=== PATIENT | male | born 1965 | race Caucasian/White ===

== ENCOUNTER 2017-04-12 08:56 | Emergency (ER) | payer BC ==
[2017-04-12] MEDS ORDERED: Labetalol 100 MG/20 ML MDV IVPUSH ONE ×2 (09:21→09:48)
[2017-04-12] MEDS ORDERED: Furosemide 40 MG/4 ML VIAL IVPUSH ONE (10:19)
[2017-04-12] MEDS ORDERED: Furosemide 40 MG/4 ML VIAL ONE (10:26)
[2017-04-12 11:11] VITALS: BP 185/124
--- NOTE | 2017-04-12 16:54 | CT ---
DATE OF SERVICE: 04/12/17 CLINICAL DATA: Lightheaded - can't focus well. UNENHANCED BRAIN CT Multislice acquisition through the brain without IV contrast was performed. Comparison is made to a prior exam dated 12/27/2014. No masses or mass effect. No intracranial hemorrhage. No evidence of acute or subacute infarct. No osseous abnormalities. There is minimal mucosal thickening in the ethmoid sinuses consistent with chronic sinusitis. IMPRESSION: No acute intracranial abnormalities. [id number] [facility]
--- NOTE | 2017-04-12 16:57 | CR ---
DATE OF SERVICE: 04/12/17 CLINICAL DATA: chest congestion. AP PORTABLE CHEST Comparison is made to a prior exam dated 12/27/14. The heart is mildly enlarged. It has increased in size from the prior exam. The pulmonary vasculature is prominent with cephalization of flow consistent with pulmonary venous congestion. There are atelectatic changes in the right lung base with eventration of the right hemidiaphragm. The lungs are otherwise clear. No pneumothorax. No pleural effusion; however, the left costophrenic angle is cut off. [id number] [facility]
--- NOTE | 2017-04-12 19:56 | ER ---
HISTORY OF PRESENT ILLNESS: A 51-year-old male here in the emergency room with complaints of not feeling real well. He feels a little lightheaded and finds it somewhat hard to focus at times. The patient denies any falls or injuries. He tells me he has not been doing much for activity. He is scheduled for low back surgery soon within a week or so and has just been laying around mainly because of his low back pain. The patient tells me he was seen last Saturday in [place] and his blood pressure medicine was changed because his blood pressure was high. The patient denies any chest pain. He states that he feels a little chest congestion, but otherwise does not feel bad as far as that is concerned it is more of the lightheadedness and somewhat difficulty focusing. Current medications are vague. It looks like the patient is on Toprol 25 mg a day and Neurontin 300 mg t.i.d. He also has prednisone and cyclobenzaprine that he really is not using. He is not sure again very vague with details involving meds. The patient has no history of heart disease. OBJECTIVE: GENERAL APPEARANCE: The patient is awake and alert. No respiratory distress. VITAL SIGNS: Reviewed. Initial blood pressure reading is 219/118. HEENT: Oral mucous membranes are moist. Tonsils not enlarged or injected. Pharynx not inflamed. NECK: Supple. LUNGS: Reveals scattered rhonchi with some rales noted, also minimal end- expiratory wheezes. The patient is using accessory muscle slightly with respiration. O2 sats are in the 88% to 90% on room air range. INITIAL TREATMENT PLAN: Labetalol 20 mg given to the patient IV, this did bring the patient's blood pressure down to around 188/98, initially. He was then sent for a CT of the head. When he returned from the CT scan, his blood pressure was 209/137. I then gave labetalol 40 mg IV and a chest x-ray was obtained showing some pulmonary congestion. Labs drawn include a CBC, which looks okay. Comprehensive metabolic panel shows a creatinine of 0.52, BUN 26.9, AST is slightly elevated at 43. BNP is elevated at 607. Troponin is negative. EKG is also negative. DIAGNOSES: 1. Hypertensive emergency, improved with medication. 2. Congestive heart failure. TREATMENT PLAN: At this point, Lasix 40 mg is given IV. The patient did void twice within an hour of waiting over 1000 mL. He states that his confusion is gone and he is able to focus now. He states that he feels good. I listened to the patient's lungs at this point, and his lungs are clear. He is no longer using accessory muscles with respiration, and the patient looks better. He is able to sit up now on the side of the bed. DISCHARGE PLANS: The patient will be discharged on the following medications: He is to be on Lasix 20 mg b.i.d. He is to take 1 more dose later on this afternoon today. I will start him on Capoten 25 mg t.i.d. and we will increase his metoprolol to 50 mg a day. I want the patient to recheck tomorrow here at the hospital to get a blood pressure recheck and to make sure that he is still doing okay. Blood pressure varied with several readings in the 200/100 range upon discharge and his O2 sats after the treatment, we stopped the oxygen and his sats improved to the low to mid 90s. The patient agrees with the treatment plan and has no further questions. SELWYN/MODL /[id number]
== END 2017-04-12 11:40 | disposition home or self-care (01) ==
LOC: LB.ED 08:56
DX: I16.1 Hypertensive emergency (principal); I50.9 Heart failure, unspecified
CPT/HCPCS: 36415; 70450; 71010; 80053; 83880; 84484; 85025; 93005; 96374; 96375; 96376; 99284; J1940

== ENCOUNTER 2017-04-18 21:35 | Emergency (ER) | payer BC ==
[2017-04-18] MEDS ORDERED: Lisinopril 20 MG Tab PO SCH (22:15)
[2017-04-18 23:06] VITALS: BP 159/107
--- NOTE | 2017-04-18 23:22 | ER ---
HISTORY OF PRESENT ILLNESS: A 51-year-old male here for recheck involving hypertension. I saw the patient here 6 days ago in the emergency room. He was diagnosed with hypertensive emergency and CHF. The patient was started on Capoten which he tells me he never did slat pickler. He did go to the pharmacy and they told him they did not have it, and he never went back up. We increased his metoprolol from 25 mg to 50 mg a day, and he was started on Lasix 20 mg b.i.d. He tells me he has been taking this most of the time. The patient has been coughing more lately and feels congestion in his chest. He did feel dizzy tonight on 1 occasion after he got up. The patient denies any wheezing and denies any GI symptoms. OBJECTIVE: GENERAL APPEARANCE: The patient is awake and alert. He is in poor personal hygiene. VITAL SIGNS: Reviewed. Initial blood pressure 210/118 with a small cuff, current weight is 236 pounds. HEENT: Ears, TMs are normal. Nares are patent. Oral mucous membranes are moist. Tonsils not enlarged or injected. Pharynx not inflamed. NECK: Supple. LUNG EXAM: Reveals rales in both bases. Deep breathing does induce coughing. CARDIAC: Heart sounds are distinct without murmurs. SKIN: Warm and dry. DIAGNOSES: 1. Hypertension. 2. Congestive heart failure, poorly treated. TREATMENT PLAN: The patient was given lisinopril 20 mg in the emergency room. He will increase his Lasix starting tomorrow morning taking 40 mg b.i.d., and he needs to recheck in the clinic tomorrow morning. The patient is here with a neighbor who agrees to bring him in or make sure that he comes in tomorrow morning for a recheck. Blood pressure kept dropping during his stay in the emergency room. We used a larger cuff which was a better fit for him, and he got a reading of 159/107. The patient does not feel dizzy, he states that he feels okay, and he agrees with the treatment plan. CRS/MODL /[id number]
[2017-04-19] MEDS ORDERED: Lisinopril 20 MG Tab PO SCH (08:00)
== END 2017-04-18 22:30 | disposition home or self-care (01) ==
LOC: LB.ED 21:35
DX: I11.0 Hypertensive heart disease with heart failure (principal); I50.9 Heart failure, unspecified
CPT/HCPCS: 99283; A9270

== ENCOUNTER 2017-04-27 00:36 | Emergency (ER) | payer BC ==
[2017-04-27] MEDS ORDERED: Sodium Chloride 0.9% 1,000 ML IV SCH (01:00)
--- NOTE | 2017-04-27 03:04 | EDM.PDOC ---
ED HPI GENERAL MEDICAL PROBLEM - General Chief Complaint: General Stated Complaint: feel fuzzy Time Seen by Provider: 04/27/17 00:45 Source of Information: Reports: Patient, Family History Limitations: Reports: Intoxication - History of Present Illness INITIAL COMMENTS - FREE TEXT/NARRATIVE: Patient is a 51 year old who is an alcoholic who drinks 1 liter of Vodka a day. He has not felt good and has been fuzzy the last 2 weeks due to his constant drinking. He has no pain but feels fuzzy. Onset: Gradual Onset Date: 04/13/17 Duration: Week(s): (2), Getting Worse Location: Reports: Generalized Quality: Reports: Same as Previous Episode Severity: Moderate Improves with: Reports: None Worsens with: Reports: None Context: Reports: Other (Alcoholic) Associated Symptoms: Reports: No Other Symptoms - Related Data Allergies Allergy/AdvReac Type Severity Reaction Status Date / Time No Known Allergies Allergy Verified 04/18/17 22:50 Home Meds: Home Meds Metoprolol Succinate [Toprol XL] 50 mg PO DAILY 04/08/17 [History] Furosemide [Lasix] 40 mg PO DAILY 04/18/17 [History] Azithromycin [IJD: Azithromycin] 250 mg PO DAILY 04/27/17 [History] Cyclobenzaprine [Flexeril] 10 mg PO TID 04/27/17 [History] Past Medical History - Past Health History Medical/Surgical History: Denies Medical/Surgical History HEENT History: Reports: Other (See Below) Other HEENT History: glasses Cardiovascular History: Reports: Hypertension Other Respiratory History: smoker Musculoskeletal History: Reports: Back Pain, Chronic Other Neuro History: L5 left foot numbness Other Psychiatric History: Drinks 7 vodkas daily Other Dermatologic History: Scab over lower back, area red. - Infectious Disease History Infectious Disease History: Reports: Other (See Below) Other Infectious Disease History: doesn't know - Past Surgical History Respiratory Surgical History: Reports: None Social & Family History - Tobacco Use Smoking Status *Q: Current Status Unknown Years of Tobacco use: 40 Packs/Tins Daily: 1 Used Tobacco, but Quit: No Second Hand Smoke Exposure: Yes - Caffeine Use Caffeine Use: Reports: Coffee - Alcohol Use Days Per Week of Alcohol Use: 7 Number of Drinks Per Day: 7 Total Drinks Per Week: 49 - Recreational Drug Use Recreational Drug Use: No ED ROS GENERAL - Review of Systems Review Of Systems: See Below Constitutional: Reports: Other (Fuzzy) HEENT: Reports: No Symptoms Respiratory: Reports: No Symptoms Cardiovascular: Reports: No Symptoms Endocrine: Reports: No Symptoms GI/Abdominal: Reports: No Symptoms : Reports: No Symptoms Musculoskeletal: Reports: No Symptoms Skin: Reports: No Symptoms Neurological: Reports: No Symptoms Psychiatric: Reports: No Symptoms Hematologic/Lymphatic: Reports: No Symptoms Immunologic: Reports: No Symptoms ED EXAM, GENERAL - Physical Exam Exam: See Below Exam Limited By: Intoxication General Appearance: Alert, WD/WN, No Apparent Distress Eye Exam: Bilateral Eye: Normal Fundi, Normal Inspection, PERRL Ears: Normal External Exam, Normal Canal, Hearing Grossly Normal, Normal TMs Ear Exam: Bilateral Ear: Auricle Normal, Canal Normal, TM normal Nose: Normal Inspection, Normal Mucosa, No Blood Throat/Mouth: Normal Inspection, Normal Lips, Normal Teeth, Normal Gums, Normal Oropharynx, Normal Voice, No Airway Compromise Head: Atraumatic, Normocephalic Neck: Normal Inspection, Supple, Non-Tender, Full Range of Motion Respiratory/Chest: No Respiratory Distress, Lungs Clear, Normal Breath Sounds, No Accessory Muscle Use, Chest Non-Tender Cardiovascular: Normal Peripheral Pulses, Regular Rate, Rhythm, No Edema, No Gallop, No JVD, No Murmur, No Rub Peripheral Pulses: 3+: Posterior Tibial (L), Posterior Tibial (R), Dorsalis Pedis (L), Dorsalis Pedis (R) GI/Abdominal: Normal Bowel Sounds, Soft, Non-Tender, No Organomegaly, No Distention, No Abnormal Bruit, No Mass Extremities: Normal Inspection, Normal Range of Motion, Non-Tender, Normal Capillary Refill, No Pedal Edema Neurological: Alert, Oriented, CN II-XII Intact, Normal Cognition, Normal Gait, Normal Reflexes, No Motor/Sensory Deficits Psychiatric: Normal Affect, Normal Mood Course - Vital Signs Text/Narrative:: Uneventful ED course. He felt sleepy but back to normal after getting one liter of Normal Saline. He wants to go home and his brother in law will take him home and will check him closely. Explained to Vinod that his alcoholism is leading to liver failure and will likely kill him but he does not want to go to treatment at this time. Suggested he see a doctor next week to discuss further treatment options. Last Recorded V/S: Last Vital Signs Temp 36.8 C 04/27/17 00:36 Pulse 85 04/27/17 00:36 Resp 20 04/27/17 00:36 BP 142/91 H 04/27/17 00:36 Pulse Ox 94 L 04/27/17 00:36 - Orders/Labs/Meds Orders: Active Orders 24 hr Category Date Time Status EKG Documentation Completion [RC] ASDIRECTED Care 04/27/17 00:53 Active CXR [Chest 1V Frontal] [CR] Stat Exams 04/27/17 00:51 Taken Sodium Chloride 0.9% [Normal Saline] 1,000 ml Med 04/27/17 01:00 Active IV ASDIRECTED Medication Orders Sodium Chloride (Normal Saline) 1,000 mls @ 1,000 mls/hr IV ASDIRECTED QUINTIN Last Admin: 04/27/17 01:13 Dose: 1,000 mls/hr Labs: Laboratory Tests 04/27/17 04/27/17 04/27/17 Range/Units 01:00 01:00 01:00 WBC 8.0 D (4.0-11.0) K/uL RBC 4.75 (4.50-6.50) M/uL Hgb 16.2 (13.0-18.0) g/dL Hct 45.0 (40.0-54.0) % MCV 95 (76-96) fL MCH 34.1 H (27.0-32.0) pg MCHC 36.0 H (31.0-35.0) g/dL RDW 12.4 (11.0-16.0) % Plt Count 52 L D (150-400) K/uL MPV 12.0 H (6.0-10.0) fL Neut % (Auto) 46.3 (45.0-70.0) % Lymph % (Auto) 47.7 H (20.0-40.0) % [place] % (Auto) 5.3 (3.0-10.0) % Eos % (Auto) 0.4 L (1.0-5.0) % Baso % (Auto) 0.3 (0.0-0.5) % Neut # (Auto) 3.70 (2.00-7.50) K/uL Lymph # (Auto) 3.80 (1.50-4.00) K/uL [place] # (Auto) 0.42 (0.20-0.80) K/uL Eos # (Auto) 0.03 L (0.04-0.40) K/uL Baso # (Auto) 0.02 (0.02-0.10) K/uL Sodium 132 L (136-145) mmol/L Potassium 4.2 (3.5-5.1) mmol/L Chloride 94 L (98-107) mmol/L Carbon Dioxide 28.6 (21.0-32.0) mmol/L Anion Gap 13.6 (5.0-15.0) mmol/L BUN 13 D (8-26) mg/dL Creatinine 0.71 D (0.70-1.30) mg/dL Est Cr Clr Drug Dosing TNP Estimated GFR (MDRD) > 60 (>60) MLS/MIN BUN/Creatinine Ratio 18.3 (6-25) Glucose 101 H (74-100) mg/dL Calcium 8.2 L (8.5-10.1) mg/dL Total Bilirubin 3.1 H D (0.0-1.0) mg/dL AST 615 H (15-37) U/L ALT 183 H (12-78) U/L Alkaline Phosphatase 134 H (46-116) U/L Troponin I < 0.017 (0.000-0.060) ng/mL Total Protein 7.1 (6.4-8.2) g/dL Albumin 3.2 L (3.4-5.0) g/dL Globulin 3.9 (2.2-4.2) g/dL Albumin/Globulin Ratio 0.8 (0.8-2.0) Ethyl Alcohol (0.0-0.0) mg/dL 04/27/17 Range/Units 01:00 WBC (4.0-11.0) K/uL RBC (4.50-6.50) M/uL Hgb (13.0-18.0) g/dL Hct (40.0-54.0) % MCV (76-96) fL MCH (27.0-32.0) pg MCHC (31.0-35.0) g/dL RDW (11.0-16.0) % Plt Count (150-400) K/uL MPV (6.0-10.0) fL Neut % (Auto) (45.0-70.0) % Lymph % (Auto) (20.0-40.0) % [place] % (Auto) (3.0-10.0) % Eos % (Auto) (1.0-5.0) % Baso % (Auto) (0.0-0.5) % Neut # (Auto) (2.00-7.50) K/uL Lymph # (Auto) (1.50-4.00) K/uL [place] # (Auto) (0.20-0.80) K/uL Eos # (Auto) (0.04-0.40) K/uL Baso # (Auto) (0.02-0.10) K/uL Sodium (136-145) mmol/L Potassium (3.5-5.1) mmol/L Chloride (98-107) mmol/L Carbon Dioxide (21.0-32.0) mmol/L Anion Gap (5.0-15.0) mmol/L BUN (8-26) mg/dL Creatinine (0.70-1.30) mg/dL Est Cr Clr Drug Dosing Estimated GFR (MDRD) (>60) MLS/MIN BUN/Creatinine Ratio (6-25) Glucose (74-100) mg/dL Calcium (8.5-10.1) mg/dL Total Bilirubin (0.0-1.0) mg/dL AST (15-37) U/L ALT (12-78) U/L Alkaline Phosphatase (46-116) U/L Troponin I (0.000-0.060) ng/mL Total Protein (6.4-8.2) g/dL Albumin (3.4-5.0) g/dL Globulin (2.2-4.2) g/dL Albumin/Globulin Ratio (0.8-2.0) Ethyl Alcohol 268.0 H (0.0-0.0) mg/dL Meds: Medications Generic Name Dose Route Start Last Admin Trade Name Freq PRN Reason Stop Dose Admin Sodium Chloride 1,000 mls @ 1,000 mls/hr 04/27/17 01:00 04/27/17 01:13 Normal Saline IV 1,000 mls/hr ASDIRECTED QUINTIN Administration Departure - Departure Time of Disposition: 03:14 Disposition: Home, Self-Care 01 Condition: Good Clinical Impression: Alcohol induced liver disorder - Discharge Information Referrals: PCP,None [Primary Care Provider] - - My Orders Last 24 Hours: My Active Orders 04/27/17 00:51 CXR [Chest 1V Frontal] [CR] Stat 04/27/17 00:53 EKG Documentation Completion [RC] ASDIRECTED 04/27/17 01:00 Sodium Chloride 0.9% [Normal Saline] 1,000 ml IV ASDIRECTED - Assessment/Plan Last 24 Hours: My Active Orders 04/27/17 00:51 CXR [Chest 1V Frontal] [CR] Stat 04/27/17 00:53 EKG Documentation Completion [RC] ASDIRECTED 04/27/17 01:00 Sodium Chloride 0.9% [Normal Saline] 1,000 ml IV ASDIRECTED
[2017-04-27 03:52] VITALS: BP 148/92
--- NOTE | 2017-04-28 10:41 | CR ---
DATE OF SERVICE: 04/27/17 CLINICAL DATA: bronchitis AP PORTABLE CHEST Comparison is made to a prior exam dated 04/12/17. The heart does appear decreased in size from the prior exam. The pulmonary vasculature is less prominent. There is persistent eventration of the right hemidiaphragm with atelectatic change in the right lung base. The right lung base, however, does appear slightly clearer than on the prior exam. The exam is otherwise unchanged. [id number] [facility]
== END 2017-04-27 03:23 | disposition home or self-care (01) ==
LOC: LB.ED 00:36
DX: K70.9 Alcoholic liver disease, unspecified (principal); I10 Essential (primary) hypertension; Z79.899 Other long term (current) drug therapy; Y90.8 Blood alcohol level of 240 mg/100 ml or more
CPT/HCPCS: 36415; 71010; 80053; 84484; 85025; 93005; 96360; 96361; 99285; G0480; J7040

== ENCOUNTER 2017-06-26 07:05 | Observation (INO) | payer BC ==
--- NOTE | 2017-06-26 08:37 | EDM.PDOC ---
ED HPI GENERAL MEDICAL PROBLEM - General Chief Complaint: General Stated Complaint: Weak, can hardly walk Time Seen by Provider: 06/26/17 08:20 Source of Information: Reports: Patient, EMS, RN History Limitations: Reports: No Limitations - History of Present Illness INITIAL COMMENTS - FREE TEXT/NARRATIVE: 51 yr male presents from ambulance with weakness and decreased memory. States he had been to [place] for some treatment and has been home since May some time. Can't remember when he last ate, doesn't remember when he last worked. Keeps repeating he leaves everything on the kitchen table. All his medication is on the kithcen table and if he ate, it would be on the kitchen table. Pt is alert. dozing, and responding to verbal command and moving extremities. EKG completed and NSR. Chest xray completed and results pending. ARON Perdue notes some wheezing with respirations and nebulizer albuterol given. Review of lab results, note electrolyte imbalance and low magnesium. Pt has long standing history of alcoholism. Will place on observation with IV fluids, MVI/ banana bag, and potassium. - Related Data Allergies Allergy/AdvReac Type Severity Reaction Status Date / Time No Known Allergies Allergy Verified 04/28/17 18:12 Home Meds: Home Meds Gabapentin [Neurontin] 300 mg PO TID 04/28/17 [History] Captopril [Capoten] 25 mg PO TID 06/26/17 [History] Naproxen 500 mg PO BID 06/26/17 [History] Metoprolol Succinate [Metoprolol Succinate] 50 mg PO BID 06/27/17 [History] Past Medical History - Past Health History Medical/Surgical History: Denies Medical/Surgical History HEENT History: Reports: Other (See Below) Other HEENT History: glasses Cardiovascular History: Reports: Hypertension Other Respiratory History: smoker Musculoskeletal History: Reports: Back Pain, Chronic Other Neuro History: L5 left foot numbness Other Psychiatric History: Drinks 7 vodkas daily Other Dermatologic History: Scab over lower back, area red. - Infectious Disease History Infectious Disease History: Reports: Other (See Below) Other Infectious Disease History: doesn't know - Past Surgical History Respiratory Surgical History: Reports: None Social & Family History - Tobacco Use Smoking Status *Q: Current Status Unknown Years of Tobacco use: 40 Packs/Tins Daily: 1 Used Tobacco, but Quit: No Second Hand Smoke Exposure: Yes - Caffeine Use Caffeine Use: Reports: Coffee - Alcohol Use Days Per Week of Alcohol Use: 7 Number of Drinks Per Day: 7 Total Drinks Per Week: 49 - Recreational Drug Use Recreational Drug Use: No ED ROS GENERAL - Review of Systems Review Of Systems: See Below Constitutional: Reports: Weakness, Fatigue HEENT: Reports: Other (mouth feels gunky.). Denies: Eye Discharge, Eye Pain, Throat Pain Respiratory: Reports: Cough Cardiovascular: Denies: Chest Pain, Dyspnea on Exertion GI/Abdominal: Reports: No Symptoms : Reports: No Symptoms Musculoskeletal: Reports: Back Pain Neurological: Reports: Weakness Psychiatric: Reports: No Symptoms ED EXAM, GENERAL - Physical Exam Exam: See Below Exam Limited By: No Limitations General Appearance: Alert, No Apparent Distress Ears: Normal External Exam, Normal Canal Nose: Normal Inspection, No Blood Throat/Mouth: Normal Voice, Other (tongue coated white, posterior pharynx erythema noted) Head: Atraumatic Neck: Normal Inspection, Non-Tender Respiratory/Chest: Normal Breath Sounds Cardiovascular: Regular Rate, Rhythm, No Edema, No Murmur Peripheral Pulses: 2+: Dorsalis Pedis (L), Dorsalis Pedis (R) GI/Abdominal: Normal Bowel Sounds, Soft, Non-Tender Extremities: Normal Range of Motion, No Pedal Edema Neurological: Alert, Oriented, Confused, Memory Loss Recent Events Psychiatric: Normal Mood Skin Exam: Warm, Dry, Normal Color Lymphatic: No Adenopathy Course - Vital Signs Last Recorded V/S: Last Vital Signs Temp 97.9 F 06/27/17 07:44 Pulse 77 06/27/17 10:30 Resp 18 06/27/17 10:30 BP 120/89 06/27/17 10:30 Pulse Ox 95 06/27/17 10:30 - Orders/Labs/Meds Labs: Laboratory Tests 06/26/17 06/26/17 06/26/17 Range/Units 07:58 07:58 07:58 WBC 7.6 D (4.0-11.0) K/uL RBC 4.91 (4.50-6.50) M/uL Hgb 15.7 (13.0-18.0) g/dL Hct 44.5 (40.0-54.0) % MCV 91 (76-96) fL MCH 32.0 (27.0-32.0) pg MCHC 35.3 H (31.0-35.0) g/dL RDW 12.7 (11.0-16.0) % Plt Count 96 L D (150-400) K/uL MPV 11.4 H (6.0-10.0) fL Neut % (Auto) 57.9 (45.0-70.0) % Lymph % (Auto) 31.9 (20.0-40.0) % [place] % (Auto) 9.6 (3.0-10.0) % Eos % (Auto) 0.5 L (1.0-5.0) % Baso % (Auto) 0.1 (0.0-0.5) % Neut # (Auto) 4.39 (2.00-7.50) K/uL Lymph # (Auto) 2.42 (1.50-4.00) K/uL [place] # (Auto) 0.73 (0.20-0.80) K/uL Eos # (Auto) 0.04 (0.04-0.40) K/uL Baso # (Auto) 0.01 L (0.02-0.10) K/uL Sodium 136 (136-145) mmol/L Potassium 3.2 L (3.5-5.1) mmol/L Chloride 96 L (98-107) mmol/L Carbon Dioxide 28.6 (21.0-32.0) mmol/L Anion Gap 14.6 (5.0-15.0) mmol/L BUN 11 D (8-26) mg/dL Creatinine 1.55 H D (0.70-1.30) mg/dL Est Cr Clr Drug Dosing TNP Estimated GFR (MDRD) 47 L (>60) MLS/MIN BUN/Creatinine Ratio 7.1 (6-25) Glucose 149 H (74-100) mg/dL Calcium 8.8 (8.5-10.1) mg/dL Magnesium 1.0 L (1.8-2.4) mg/dL Total Bilirubin 0.5 D (0.0-1.0) mg/dL AST 106 H (15-37) U/L ALT 60 (12-78) U/L Alkaline Phosphatase 160 H (46-116) U/L Troponin I < 0.017 (0.000-0.060) ng/mL Total Protein 7.8 (6.4-8.2) g/dL Albumin 3.4 (3.4-5.0) g/dL Globulin 4.4 H (2.2-4.2) g/dL Albumin/Globulin Ratio 0.8 (0.8-2.0) Urine Color Yellow Urine Appearance Cloudy (CLEAR) Urine pH 5.5 (5.0-8.0) Ur Specific [place] >= 1.030 (1.003-1.030) Urine Protein 100 H (NEGATIVE) mg/dL Urine Glucose (UA) Negative (NEGATIVE) mg/dL Urine Ketones Trace H (NEGATIVE) mg/dL Urine Occult Blood Small H (NEGATIVE) Urine Nitrite Positive H (NEGATIVE) Urine Bilirubin Small H (NEGATIVE) Urine Urobilinogen 2.0 H (0.2-1.0) E.U./dL Ur Leukocyte Esterase Negative (NEGATIVE) Urine RBC 0-5 H /HPF Urine WBC 5-10 H /HPF Ur Squamous Epith Cells Few /HPF Amorphous Sediment Many /HPF Urine Bacteria Few /HPF Ethyl Alcohol 0.0 (0.0-0.0) mg/dL Meds: Medications Discontinued Medications Generic Name Dose Route Start Last Admin Trade Name Freq PRN Reason Stop Dose Admin Gabapentin 300 mg 06/26/17 20:00 06/27/17 08:35 Neurontin PO 300 mg TID QUINTIN Administration Sodium Chloride 1,000 mls @ 75 mls/hr 06/26/17 09:30 06/27/17 06:18 Normal Saline IV 75 mls/hr ASDIRECTED QUINTIN Administration Multivitamins/Minerals 10 ml/ 1,017.2 mls @ 75 mls/hr 06/26/17 09:30 10:30 Thiamine HCl 100 mg/ Folic IV 75 mls/hr Acid 1 mg/ Magnesium Sulfate 3 ASDIRECTED QUINTIN Administration gm/ Sodium Chloride Lorazepam 0.5 mg 06/26/17 09:21 06/26/17 14:46 Ativan PO 0.5 mg Q6H PRN Administration Agitation Metoprolol Tartrate 25 mg 06/26/17 20:00 06/26/17 20:57 Lopressor PO 25 mg BID QUINTIN Administration Naproxen 500 mg 06/26/17 20:00 06/27/17 08:35 Naprosyn PO 500 mg BID QUINTIN Administration Non-Formulary Medication 25 mg 06/26/17 20:00 06/27/17 08:35 Captopril [Capoten] PO 25 mg TID QUINTIN Administration Potassium Chloride 20 meq 06/26/17 09:45 06/27/17 08:39 Klor-Con M20 PO 20 meq BID QUINTIN Administration - Re-Assessments/Exams Free Text/Narrative Re-Assessment/Exam: 06/29/17 07:29 LE 06-27-17: Pt rested well during night. Unable to void for several hours and IV fluid bolus given with U/A late 06-26-17. Urinalysis repeated in am and noted positive nitrite and leuk est. and moderate bacteria. Will treat for UTI. Electrolytes improved in am. Pt alert, sitting at edge of bed and wants to go home. States he wants to go have a cigarette. Reviewed medications with ARON Mast for pt discharge. Pt to F/U with PCP and continue with Bactrim for UTI. Departure - Departure Time of Disposition: 12:00 Disposition: Home, Self-Care 01 Condition: Good Clinical Impression: UTI, Urinary tract infectious disease, Electrolyte imbalance - Discharge Information
--- NOTE | 2017-06-26 09:09 | CR ---
DATE OF SERVICE: 06/26/17 CLINICAL DATA: wheezing bilateral lung calderon PA CHEST: Comparison is made to a prior exam dated 04/27/17. The heart size is normal. There is persistent eventration of the right hemidiaphragm with atelectatic changes in the right lung base. No changes from the prior exam. No evidence of acute intrathoracic disease. [id number] [facility]
[2017-06-26] MEDS ORDERED: LORazepam 0.5 MG Tab PO PRN (09:21)
[2017-06-26] MEDS ORDERED: MVI, Adult with Vitamin K 10 ML, Thiamine 100 MG, Folic Acid 1 MG, Magnesium Sulfate 3 ... IV SCH ×5 (09:30)
[2017-06-26] MEDS: Potassium Chloride 20 MEQ Tab.ER PO SCH ×2 (16:49→20:57)
[2017-06-26] MEDS ORDERED: CAPTOPRIL 25 MG PO SCH (20:00)
[2017-06-26] MEDS ORDERED: Metoprolol Tartrate 25 MG Tab PO SCH (20:00)
[2017-06-26] MEDS: Gabapentin 300 MG Cap PO SCH (20:57)
[2017-06-26] MEDS: Naproxen 500 MG Tab PO SCH (20:57)
[2017-06-26] MEDS: Sodium Chloride 0.9% 1,000 ML IV SCH (23:47)
[2017-06-27] MEDS: Sodium Chloride 0.9% 1,000 ML IV SCH (06:18)
[2017-06-27] MEDS: Naproxen 500 MG Tab PO SCH (08:35)
[2017-06-27] MEDS: Gabapentin 300 MG Cap PO SCH (08:35)
[2017-06-27] MEDS: Potassium Chloride 20 MEQ Tab.ER PO SCH (08:39)
[2017-06-27 21:05] VITALS: BP 120/89
--- NOTE | 2017-06-29 07:50 | PCM.DCSUM1 ---
Discharge Summary - Hospital Course Free Text/Narrative:: Refer to admission note for discharge information. Pt discharge with Rx for Bactrim for UTI and refill of Metoprolol, as pt can't find this at home. Pt had a medication bottle of clonidine and with review of clinic notes, this was D /Cd.. Pt should follow-up with PCP next week. He is requesting a note to return to work. With his increase in weakness, presentation with electrolyte imbalance and loss of memory, I am not comfortable giving him a release for work at this time. He can't remember the last time he ate or the last time he went to work. - Discharge Data Discharge Date: 06/27/17 Discharge Disposition: Home, Self-Care 01 Condition: Good - Patient Instructions Diet: Usual Diet as Tolerated Activity: As Tolerated Notify Provider of: Fever, Increased Pain, Swelling and Redness, Drainage, Nausea and/or Vomiting - Discharge Plan Home Medications: Home Meds Gabapentin [Neurontin] 300 mg PO TID 04/28/17 [History] Captopril [Capoten] 25 mg PO TID 06/26/17 [History] Naproxen 500 mg PO BID 06/26/17 [History] Metoprolol Succinate [Metoprolol Succinate] 50 mg PO BID 06/27/17 [History] Patient Handouts: Metoprolol extended-release tablets, Urinary Tract Infection , Adult, Sulfamethoxazole; Trimethoprim, SMX-TMP tablets Forms: ED Department Discharge Referrals: PCP,None [Primary Care Provider] - - Patient Data Vitals - Most Recent: Last Vital Signs Temp 97.9 F 06/27/17 07:44 Pulse 77 06/27/17 10:30 Resp 18 06/27/17 10:30 BP 120/89 06/27/17 10:30 Pulse Ox 95 06/27/17 10:30 Weight - Most Recent: 205 lb Med Orders - Current: Current Medications Discontinued Medications Gabapentin (Neurontin) 300 mg PO TID [facility] Last Admin: 06/27/17 08:35 Dose: 300 mg Sodium Chloride (Normal Saline) 1,000 mls @ 75 mls/hr IV ASDIRECTED [facility] Last Admin: 06/27/17 06:18 Dose: 75 mls/hr Multivitamins/Minerals 10 ml/Thiamine HCl 100 mg/ Folic Acid 1 mg/ Magnesium Sulfate 3 gm/ Sodium Chloride 1,017.2 mls @ 75 mls/hr IV ASDIRECTED [facility] Last Admin: 06/26/17 10:30 Dose: 75 mls/hr Lorazepam (Ativan) 0.5 mg PO Q6H PRN PRN Reason: Agitation Last Admin: 06/26/17 14:46 Dose: 0.5 mg Metoprolol Tartrate (Lopressor) 25 mg PO BID [facility] Last Admin: 06/26/17 20:57 Dose: 25 mg Naproxen (Naprosyn) 500 mg PO BID [facility] Last Admin: 06/27/17 08:35 Dose: 500 mg Non-Formulary Medication (Captopril [Capoten]) 25 mg PO TID [facility] Last Admin: 06/27/17 08:35 Dose: 25 mg Potassium Chloride (Klor-Con M20) 20 meq PO BID [facility] Last Admin: 06/27/17 08:39 Dose: 20 meq *Q Meaningful Use (DIS) - VTE *Q VTE Criteria *Q: - Stroke *Q Stroke Criteria *Q: - AMI *Q AMI Criteria *Q:
== END 2017-06-27 12:05 | disposition home or self-care (01) ==
LOC: LB.ED 07:05 → LB.MS 09:17 → UNDOADMOB 09:19
PROVIDERS: ADMIT Family Medicine; ATTEND Nurse Practitioner Family
DX: N39.0 Urinary tract infection, site not specified (principal); E87.8 Other disorders of electrolyte and fluid balance, not elsewhere classified; I10 Essential (primary) hypertension; G89.29 Other chronic pain; M54.9 Dorsalgia, unspecified; Z79.899 Other long term (current) drug therapy; F17.210 Nicotine dependence, cigarettes, uncomplicated
CPT/HCPCS: 36415; 71020; 80048; 80053; 81001; 83735; 84484; 85025; 93005; 99285; A0425; A0429; A9270; G0480; J3411; J3475; J7040; 96361; 96365; 96366; G0378; J3490

== ENCOUNTER 2017-07-21 19:05 | Emergency (ER) | payer BC ==
--- NOTE | 2017-07-21 20:24 | EDM.PDOC ---
ED HPI GENERAL MEDICAL PROBLEM - General Chief Complaint: Drug or Alcohol Abuse Stated Complaint: Been drinking too much Time Seen by Provider: 07/21/17 19:30 Source of Information: Reports: Patient History Limitations: Reports: No Limitations - History of Present Illness INITIAL COMMENTS - FREE TEXT/NARRATIVE: This is a 52yo M who present to the ER with concerns he is drinking too much. Patient states he has been to rehab and stopped but started recently drinking 6 shots of vodka and more daily. He would like to go to a detox center. Patient denies any other health concerns or complaints. Onset: Gradual Duration: Week(s):, Chronic, Waxing/Waning - Related Data Allergies Allergy/AdvReac Type Severity Reaction Status Date / Time No Known Allergies Allergy Verified 07/21/17 19:48 Home Meds: Home Meds Naproxen 500 mg PO BID 06/26/17 [History] Metoprolol Succinate [Metoprolol Succinate] 50 mg PO BID 06/27/17 [History] Past Medical History - Past Health History Medical/Surgical History: Denies Medical/Surgical History HEENT History: Reports: Other (See Below) Other HEENT History: glasses Cardiovascular History: Reports: Hypertension Other Respiratory History: smoker Musculoskeletal History: Reports: Back Pain, Chronic Other Neuro History: L5 left foot numbness Psychiatric History: Reports: Addiction Other Psychiatric History: Drinks 7 vodkas daily Other Dermatologic History: Scab over lower back, area red. - Infectious Disease History Infectious Disease History: Reports: Other (See Below) Other Infectious Disease History: doesn't know - Past Surgical History Respiratory Surgical History: Reports: None Social & Family History - Tobacco Use Smoking Status *Q: Current Status Unknown Years of Tobacco use: 40 Packs/Tins Daily: 1 Used Tobacco, but Quit: No Second Hand Smoke Exposure: Yes - Caffeine Use Caffeine Use: Reports: Coffee - Alcohol Use Days Per Week of Alcohol Use: 7 Number of Drinks Per Day: 7 Total Drinks Per Week: 49 - Recreational Drug Use Recreational Drug Use: No ED ROS GENERAL - Review of Systems Review Of Systems: ROS reveals no pertinent complaints other than HPI. ED EXAM, GENERAL - Physical Exam Exam: See Below Exam Limited By: No Limitations General Appearance: Alert, WD/WN, No Apparent Distress Eye Exam: Bilateral Eye: EOMI, PERRL Ears: Normal External Exam Nose: Normal Inspection Throat/Mouth: Normal Inspection Head: Atraumatic, Normocephalic Neck: Normal Inspection Respiratory/Chest: No Respiratory Distress, Lungs Clear, Normal Breath Sounds Cardiovascular: Normal Peripheral Pulses, Regular Rate, Rhythm GI/Abdominal: Normal Bowel Sounds Back Exam: Normal Inspection Extremities: Normal Inspection, Normal Range of Motion, Non-Tender Neurological: Alert, Oriented, CN II-XII Intact Psychiatric: Normal Affect, Normal Mood Skin Exam: Warm, Dry, Intact Course - Vital Signs Last Recorded V/S: Last Vital Signs Temp 36.6 C 07/21/17 21:44 Pulse 100 07/21/17 21:44 Resp 20 07/21/17 21:44 BP 150/93 H 07/21/17 21:44 Pulse Ox 92 L 07/21/17 21:44 - Orders/Labs/Meds Labs: Laboratory Tests 07/21/17 07/21/17 07/21/17 Range/Units 20:00 20:00 20:08 WBC 10.8 D (4.0-11.0) K/uL RBC 4.27 L (4.50-6.50) M/uL Hgb 13.8 (13.0-18.0) g/dL Hct 39.9 L (40.0-54.0) % MCV 93 (76-96) fL MCH 32.3 H (27.0-32.0) pg MCHC 34.6 (31.0-35.0) g/dL RDW 15.2 (11.0-16.0) % Plt Count 69 L D (150-400) K/uL MPV 11.4 H (6.0-10.0) fL Neut % (Auto) 62.8 (45.0-70.0) % Lymph % (Auto) 29.8 (20.0-40.0) % [place] % (Auto) 7.1 (3.0-10.0) % Eos % (Auto) 0.2 L (1.0-5.0) % Baso % (Auto) 0.1 (0.0-0.5) % Neut # (Auto) 6.81 (2.00-7.50) K/uL Lymph # (Auto) 3.23 (1.50-4.00) K/uL [place] # (Auto) 0.77 (0.20-0.80) K/uL Eos # (Auto) 0.02 L (0.04-0.40) K/uL Baso # (Auto) 0.01 L (0.02-0.10) K/uL Sodium 138 (136-145) mmol/L Potassium 3.4 L (3.5-5.1) mmol/L Chloride 97 L (98-107) mmol/L Carbon Dioxide 22.7 (21.0-32.0) mmol/L Anion Gap 21.7 H (5.0-15.0) mmol/L BUN 26 D (8-26) mg/dL Creatinine 1.15 D (0.70-1.30) mg/dL Est Cr Clr Drug Dosing 78.21 mL/min Estimated GFR (MDRD) > 60 (>60) MLS/MIN BUN/Creatinine Ratio 22.6 (6-25) Glucose 97 (74-100) mg/dL Calcium 8.3 L (8.5-10.1) mg/dL Total Bilirubin 1.1 H D (0.0-1.0) mg/dL AST 118 H (15-37) U/L ALT 42 (12-78) U/L Alkaline Phosphatase 114 (46-116) U/L Total Protein 6.7 (6.4-8.2) g/dL Albumin 3.3 L (3.4-5.0) g/dL Globulin 3.4 (2.2-4.2) g/dL Albumin/Globulin Ratio 1.0 (0.8-2.0) TSH, Ultra Sensitive 2.100 (0.358-3.740) uIU/mL Urine Color Brown Urine Appearance Clear (CLEAR) Urine pH 6.0 (5.0-8.0) Ur Specific [place] 1.020 (1.003-1.030) Urine Protein >=300 H (NEGATIVE) mg/dL Urine Glucose (UA) Negative (NEGATIVE) mg/dL Urine Ketones 40 H (NEGATIVE) mg/dL Urine Occult Blood Moderate H (NEGATIVE) Urine Nitrite Negative (NEGATIVE) Urine Bilirubin Moderate H (NEGATIVE) Urine Urobilinogen 4.0 H (0.2-1.0) E.U./dL Ur Leukocyte Esterase Negative (NEGATIVE) Urine RBC 0-5 H /HPF Urine WBC Not seen /HPF Ur Squamous Epith Cells Occasional /HPF Urine Bacteria Not seen /HPF Ethyl Alcohol 124.0 H (0.0-0.0) mg/dL Departure - Departure Time of Disposition: 23:50 Disposition: Home, Self-Care 01 Condition: Undetermined Clinical Impression: Alcohol abuse - Discharge Information Instructions: Alcohol Use Disorder, Chemical Dependency, Alcohol Intoxication, [id number], Finding Treatment for Addiction Referrals: PCP,None [Primary Care Provider] - Forms: ED Department Discharge - Problem List & Annotations (1) Alcohol abuse SNOMED Code(s): 11229665 Code(s): F10.10 - ALCOHOL ABUSE, UNCOMPLICATED Status: Acute - Problem List Review Problem List Initiated/Reviewed/Updated: Yes - Assessment/Plan Plan: Plan of care for patient to go to alcohol detox center arranged. Patient unable to find someone that will agree to drive him home from the detox center and therefore the center refuses otherwise to accept. Discussed plan to brother but he states he is just unable to go pick him up (his brother dropped him off at the hospital). Brother says maybe his brother in law can drive but he is out of town in the cities and they do not have any way of getting ahold of him. Discussed this with Vinod and he states he will just go home with his Brother. His brother agrees to pick him up and take him home for monitoring. Patient discharged to [facility]. Counseled on rtc or ER for placement when his [id number] returns and is able to acknowledge his ability and willingness to drive him home from the detox center.
[2017-07-21 21:45] VITALS: BP 150/93
== END 2017-07-21 21:38 | disposition home or self-care (01) ==
LOC: LB.ED 19:05
DX: F10.10 Alcohol abuse, uncomplicated (principal); Y90.6 Blood alcohol level of 120-199 mg/100 ml; I10 Essential (primary) hypertension; F17.210 Nicotine dependence, cigarettes, uncomplicated; Z79.899 Other long term (current) drug therapy
CPT/HCPCS: 36415; 80053; 81001; 84443; 85025; 99284; G0480

== ENCOUNTER 2017-07-30 12:05 | Emergency (ER) | payer BC, MEDICAID ==
--- NOTE | 2017-07-30 13:17 | EDM.PDOCBH ---
ED HPI GENERAL MEDICAL PROBLEM - General Chief Complaint: Drug or Alcohol Abuse Stated Complaint: wants treatment Time Seen by Provider: 07/30/17 13:00 Source of Information: Reports: Patient, RN History Limitations: Reports: No Limitations - History of Present Illness INITIAL COMMENTS - FREE TEXT/NARRATIVE: 52 yr male presents with alcohol abuse and states wants treatment. States last use was last night and usually has 0.5 to 1 L vodka/day and does smoke about 1- 2 PPD. Pt is alert and talkative and ambulatory. States no signs of cold or infection. States some cough from smoking. - Related Data Allergies Allergy/AdvReac Type Severity Reaction Status Date / Time No Known Allergies Allergy Verified 07/21/17 19:48 Home Meds: Home Meds Metoprolol Succinate [Metoprolol Succinate] 50 mg PO BID 06/27/17 [History] Past Medical History - Past Health History Medical/Surgical History: Denies Medical/Surgical History HEENT History: Reports: Other (See Below) Other HEENT History: glasses Cardiovascular History: Reports: Hypertension Other Respiratory History: smoker Gastrointestinal History: Reports: Cirrhosis, Other (See Below) Other Gastrointestinal History: not sure if actually cirrhosis but has "some liver problems" Musculoskeletal History: Reports: Back Pain, Chronic Other Neuro History: L5 left foot numbness Psychiatric History: Reports: Addiction Other Psychiatric History: Drinks 7 vodkas daily Dermatologic History: Reports: Other (See Below) Other Dermatologic History: Scab over lower back, area red. - Infectious Disease History Infectious Disease History: Reports: Chicken Pox, Measles Other Infectious Disease History: doesn't know - Past Surgical History Respiratory Surgical History: Reports: None Social & Family History - Family History Family Medical History: Noncontributory - Tobacco Use Smoking Status *Q: Current Every Day Smoker Years of Tobacco use: 40 Packs/Tins Daily: 1.5 Used Tobacco, but Quit: No Second Hand Smoke Exposure: No - Caffeine Use Caffeine Use: Reports: Coffee - Alcohol Use Days Per Week of Alcohol Use: 7 Number of Drinks Per Day: 20 Total Drinks Per Week: 140 Date of Last Drink: 07/29/17 Time of Last Drink: 23:00 - Recreational Drug Use Recreational Drug Use: No Drug Use in Last 12 Months: No Recreational Drug Type: Reports: Marijuana/Hashish ED ROS GENERAL - Review of Systems Review Of Systems: See Below Constitutional: Reports: No Symptoms HEENT: Reports: No Symptoms, Glasses Respiratory: Reports: Cough (smokers cough) Cardiovascular: Reports: No Symptoms GI/Abdominal: Reports: No Symptoms : Reports: No Symptoms Musculoskeletal: Reports: No Symptoms Skin: Reports: No Symptoms Neurological: Reports: No Symptoms Psychiatric: Reports: No Symptoms Hematologic/Lymphatic: Reports: No Symptoms ED EXAM, BEHAVIORAL HEALTH - Physical Exam Exam: See Below Exam Limited By: No Limitations General Appearance: Alert, No Apparent Distress Ears: Hearing Grossly Normal Nose: Normal Inspection Throat/Mouth: Normal Inspection, Normal Voice Head: Atraumatic, Normocephalic Neck: Supple, Non-Tender Respiratory/Chest: No Respiratory Distress, Decreased Breath Sounds Cardiovascular: Regular Rate, Rhythm GI/Abdominal: Soft, Non-Tender, Other (BM yesterday) Back Exam: Other (low back pain on left) Extremities: Normal Range of Motion Neurological: Alert, Normal Mood/Affect, Oriented x 3, Other (poor memory) Psychiatric: Alert, Normal Affect, Normal Cognition, Oriented. No: Auditory Hallucinations, Visual Hallucinations Skin Exam: Warm, Dry, Normal color COURSE, BEHAVIORAL HEALTH COMP - Course Vital Signs: Last Vital Signs Temp 99 F 07/30/17 17:00 Pulse 113 H 07/30/17 17:00 Resp 16 07/30/17 17:00 BP 179/107 H 07/30/17 17:00 Pulse Ox 99 07/30/17 17:00 Orders, Labs, Meds: Laboratory Tests 07/30/17 07/30/17 07/30/17 Range/Units 13:15 13:15 13:15 WBC 11.2 H (4.0-11.0) K/uL RBC 4.12 L (4.50-6.50) M/uL Hgb 13.4 (13.0-18.0) g/dL Hct 38.7 L (40.0-54.0) % MCV 94 (76-96) fL MCH 32.5 H (27.0-32.0) pg MCHC 34.6 (31.0-35.0) g/dL RDW 16.4 H (11.0-16.0) % Plt Count 241 D (150-400) K/uL MPV 9.8 (6.0-10.0) fL Neut % (Auto) 59.4 (45.0-70.0) % Lymph % (Auto) 32.8 (20.0-40.0) % [place] % (Auto) 7.3 (3.0-10.0) % Eos % (Auto) 0.3 L (1.0-5.0) % Baso % (Auto) 0.2 (0.0-0.5) % Neut # (Auto) 6.66 (2.00-7.50) K/uL Lymph # (Auto) 3.68 (1.50-4.00) K/uL [place] # (Auto) 0.82 H (0.20-0.80) K/uL Eos # (Auto) 0.03 L (0.04-0.40) K/uL Baso # (Auto) 0.02 (0.02-0.10) K/uL Sodium 139 (136-145) mmol/L Potassium 3.1 L (3.5-5.1) mmol/L Chloride 95 L (98-107) mmol/L Carbon Dioxide 30.3 D (21.0-32.0) mmol/L Anion Gap 16.8 H (5.0-15.0) mmol/L BUN 4 L D (8-26) mg/dL Creatinine 0.73 D (0.70-1.30) mg/dL Est Cr Clr Drug Dosing 119.44 mL/min Estimated GFR (MDRD) > 60 (>60) MLS/MIN BUN/Creatinine Ratio 5.5 L (6-25) Glucose 102 H (74-100) mg/dL Calcium 7.7 L (8.5-10.1) mg/dL Total Bilirubin 0.6 D (0.0-1.0) mg/dL AST 109 H (15-37) U/L ALT 45 (12-78) U/L Alkaline Phosphatase 157 H (46-116) U/L Total Protein 7.5 (6.4-8.2) g/dL Albumin 3.4 (3.4-5.0) g/dL Globulin 4.1 (2.2-4.2) g/dL Albumin/Globulin Ratio 0.8 (0.8-2.0) TSH, Ultra Sensitive 1.956 (0.358-3.740) uIU/mL Urine Color Urine Appearance (CLEAR) Urine pH (5.0-8.0) Ur Specific [place] (1.003-1.030) Urine Protein (NEGATIVE) mg/dL Urine Glucose (UA) (NEGATIVE) mg/dL Urine Ketones (NEGATIVE) mg/dL Urine Occult Blood (NEGATIVE) Urine Nitrite (NEGATIVE) Urine Bilirubin (NEGATIVE) Urine Urobilinogen (0.2-1.0) E.U./dL Ur Leukocyte Esterase (NEGATIVE) Urine RBC /HPF Urine WBC /HPF Ur Squamous Epith Cells /HPF Hyaline Casts /HPF Urine Opiates Screen (NEGATIVE) Ur Oxycodone Screen (NEGATIVE) Urine Methadone Screen (NEGATIVE) U Acetaminophen Screen (NEGATIVE) Ur Barbiturates Screen (NEGATIVE) Ur Tricyclics Screen (NEGATIVE) Ur Phencyclidine Scrn (NEGATIVE) Ur Amphetamine Screen (NEGATIVE) U Methamphetamines Scrn (NEGATIVE) U Benzodiazepines Scrn (NEGATIVE) U Cocaine Metab Screen (NEGATIVE) U Marijuana (THC) Screen (NEGATIVE) Ethyl Alcohol (0.0-0.0) mg/dL 07/30/17 07/30/17 07/30/17 Range/Units 13:15 13:27 13:27 WBC (4.0-11.0) K/uL RBC (4.50-6.50) M/uL Hgb (13.0-18.0) g/dL Hct (40.0-54.0) % MCV (76-96) fL MCH (27.0-32.0) pg MCHC (31.0-35.0) g/dL RDW (11.0-16.0) % Plt Count (150-400) K/uL MPV (6.0-10.0) fL Neut % (Auto) (45.0-70.0) % Lymph % (Auto) (20.0-40.0) % [place] % (Auto) (3.0-10.0) % Eos % (Auto) (1.0-5.0) % Baso % (Auto) (0.0-0.5) % Neut # (Auto) (2.00-7.50) K/uL Lymph # (Auto) (1.50-4.00) K/uL [place] # (Auto) (0.20-0.80) K/uL Eos # (Auto) (0.04-0.40) K/uL Baso # (Auto) (0.02-0.10) K/uL Sodium (136-145) mmol/L Potassium (3.5-5.1) mmol/L Chloride (98-107) mmol/L Carbon Dioxide (21.0-32.0) mmol/L Anion Gap (5.0-15.0) mmol/L BUN (8-26) mg/dL Creatinine (0.70-1.30) mg/dL Est Cr Clr Drug Dosing mL/min Estimated GFR (MDRD) (>60) MLS/MIN BUN/Creatinine Ratio (6-25) Glucose (74-100) mg/dL Calcium (8.5-10.1) mg/dL Total Bilirubin (0.0-1.0) mg/dL AST (15-37) U/L ALT (12-78) U/L Alkaline Phosphatase (46-116) U/L Total Protein (6.4-8.2) g/dL Albumin (3.4-5.0) g/dL Globulin (2.2-4.2) g/dL Albumin/Globulin Ratio (0.8-2.0) TSH, Ultra Sensitive (0.358-3.740) uIU/mL Urine Color Yellow Urine Appearance Clear (CLEAR) Urine pH 5.5 (5.0-8.0) Ur Specific [place] 1.015 (1.003-1.030) Urine Protein 100 H (NEGATIVE) mg/dL Urine Glucose (UA) Negative (NEGATIVE) mg/dL Urine Ketones Negative (NEGATIVE) mg/dL Urine Occult Blood Trace-intact H (NEGATIVE) Urine Nitrite Negative (NEGATIVE) Urine Bilirubin Small H (NEGATIVE) Urine Urobilinogen 2.0 H (0.2-1.0) E.U./dL Ur Leukocyte Esterase Negative (NEGATIVE) Urine RBC 0-5 H /HPF Urine WBC 0-5 H /HPF Ur Squamous Epith Cells Few /HPF Hyaline Casts Few /HPF Urine Opiates Screen Negative (NEGATIVE) Ur Oxycodone Screen Negative (NEGATIVE) Urine Methadone Screen Negative (NEGATIVE) U Acetaminophen Screen Negative (NEGATIVE) Ur Barbiturates Screen Negative (NEGATIVE) Ur Tricyclics Screen Negative (NEGATIVE) Ur Phencyclidine Scrn Negative (NEGATIVE) Ur Amphetamine Screen Negative (NEGATIVE) U Methamphetamines Scrn Negative (NEGATIVE) U Benzodiazepines Scrn Negative (NEGATIVE) U Cocaine Metab Screen Negative (NEGATIVE) U Marijuana (THC) Screen Negative (NEGATIVE) Ethyl Alcohol 129.0 H (0.0-0.0) mg/dL Medications Discontinued Medications Generic Name Dose Route Start Last Admin Trade Name Marcus PRN Reason Stop Dose Admin Hydralazine HCl 10 mg 07/30/17 16:51 07/30/17 16:55 Apresoline IM 07/30/17 16:52 10 mg ONETIME ONE Administration Hydralazine HCl Confirm 07/30/17 16:55 07/30/17 16:55 Apresoline Administered 07/30/17 16:56 Not Given Dose 20 mg .ROUTE .STK-MED ONE Lorazepam Confirm 07/30/17 16:48 07/30/17 16:54 Ativan Administered 07/30/17 16:49 Not Given Dose 0.5 mg .ROUTE .STK-MED ONE Lorazepam 0.5 mg 07/30/17 16:45 07/30/17 16:49 Ativan PO 07/30/17 16:46 0.5 mg ONETIME ONE Administration Metoprolol Succinate 50 mg 07/30/17 15:45 07/30/17 15:47 Toprol Xl PO 07/30/17 15:46 50 mg ONETIME ONE Administration Metoprolol Succinate Confirm 07/30/17 15:43 07/30/17 16:06 Toprol Xl Administered 07/30/17 15:44 Not Given Dose 50 mg .ROUTE .STK-MED ONE Re-Assessment/Re-Exam: Lab results completed, blood ETOH 125. Urine negative for other chemicals. Chest x-ray shows no acute findings. States long history of chronic low back pain. Smokes for 40 years and has been drinking for 40 years. Smokes 1-2 PPD, and drinks 1 liter vodka each day. Contacted [place] detox center and will accept pt, but needs transportation. States no recovery bed open at this time. Consult with Filling Mixer Gordon of [facility] and stated no assistance since pt doesn't have MA. States his family can't transport him, as he is out of town . Pt has been talking to his work today to notify of his need to be off work. Consult with MARIA ISABEL Mcguire at [facility] and he is assisting with transportation for pt. Pt has been pacing and drinking coffee. Metoprolol XL 50 mg PO given X1. Ativan 0.5 mg PO given for anxiety. Pt worried about losing his job. He has been talking to his work today in the ER. Uncertain if pt is taking his medication daily or not. Reviewed pt status with Dr Mejia. States to give Hydralazine 10 MG IM for elevated BP. ARON Watson monitored BP and had pt rest in ER. Blood pressure responded to medication. MARIA ISABEL Mcguire was able to locate volunteer pile driver operator for pt to get to detox at [place]. MARIA ISABEL Mcguire states this facility will assist with cost of transportation. Pt is satisfied with this plan. He is concerned with his truck in the parking lot. AORN Watson placed keys in envelope and pt brother will come cotton picking machine operator the truck. Pt states his brother will drive to work, but otherwise doesn't drive out of town. Pt states his brother-in- law will be back Saturday and can come and get him. Pt discharged ambulatory. Forms faxed to facility and forms sent with pt. Departure - Departure Time of Disposition: 17:05 Disposition: DC/Tfer to Other 70 Condition: Good Clinical Impression: Alcohol abuse - Discharge Information Referrals: PCP,None [Primary Care Provider] - Forms: ED Department Discharge Care Plan Goals: Keep appointment at [facility] in [place]. 3 Toprol 50mg per Malaika Ag CNP for the 3 days he will be there. Will cotton picking machine operator cigarettes on the way.
[2017-07-30] MEDS ORDERED: Metoprolol Succinate 50 MG Tab.ER ONE (13:30)
[2017-07-30] MEDS: Metoprolol Succinate 50 MG Tab.ER PO ONE (15:47)
[2017-07-30] MEDS: Metoprolol Succinate 50 MG Tab.ER ONE (16:06)
[2017-07-30] MEDS: LORazepam 0.5 MG Tab PO ONE (16:49)
[2017-07-30] MEDS: LORazepam 0.5 MG Tab ONE (16:54)
[2017-07-30] MEDS: hydrALAZINE 20 MG/ML SDV ONE (16:55)
[2017-07-30] MEDS: hydrALAZINE 20 MG/ML SDV IM ONE (16:55)
[2017-07-30 19:09] VITALS: BP 179/107
--- NOTE | 2017-07-30 19:14 | CR ---
DATE OF SERVICE: 07/30/17 CLINICAL DATA: alcohol use PA AND LATERAL CHEST: Comparison is made to a prior exam dated 06/26/17. The heart size is stable. 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 The lungs are clear. No pneumothorax. No pleural effusions. There is a healed right clavicle fracture. IMPRESSION: No acute abnormalities. [id number] [facility]
== END 2017-07-30 17:05 | disposition other institution (70) ==
LOC: LB.ED 12:05
DX: F10.10 Alcohol abuse, uncomplicated (principal); M54.5 Low back pain; Y90.6 Blood alcohol level of 120-199 mg/100 ml; F17.210 Nicotine dependence, cigarettes, uncomplicated; I10 Essential (primary) hypertension
CPT/HCPCS: 36415; 71046; 80053; 80307; 81001; 84443; 85025; 96372; 99285-25; A9270-GY; G0480; J0360

== ENCOUNTER 2017-08-17 12:56 | Emergency (ER) | payer BC, MEDICAID ==
[2017-08-17 13:18] VITALS: BP 128/124
[2017-08-17] MEDS ORDERED: predniSONE 10 MG Tab ONE (14:00)
--- NOTE | 2017-08-17 18:39 | EDM.PDOC ---
ED HPI GENERAL MEDICAL PROBLEM - General Chief Complaint: Back Pain or Injury Stated Complaint: LOWER BACK PAIN Time Seen by Provider: 08/17/17 13:00 Source of Information: Reports: Patient History Limitations: Reports: No Limitations - History of Present Illness INITIAL COMMENTS - FREE TEXT/NARRATIVE: Patient is a 52 year old alcoholic man who has chronic low back pain that he has been told may need surgery. He has not seen a surgeon yet because he does not think he will be approved for surgery. Today his low back hurts more and he has pain and numbness radiating down his left leg into his left foot. No fever or chills and no weakness or loss of bowel or bladder control. Onset: Unknown/Unsure Onset Date: 08/17/17 Onset Time: 08:00 Duration: Day(s): (Unsure how many days.) Location: Reports: Back Quality: Reports: Ache, Same as Previous Episode, Throbbing Severity: Moderate Improves with: Reports: Immobilization, Medication Worsens with: Reports: Movement Context: Reports: Other (History of low back pain for years.) Associated Symptoms: Reports: No Other Symptoms - Related Data Allergies Allergy/AdvReac Type Severity Reaction Status Date / Time No Known Allergies Allergy Verified 07/21/17 19:48 Home Meds: Home Meds Metoprolol Succinate [Metoprolol Succinate] 50 mg PO BID 06/27/17 [History] Past Medical History - Past Health History Medical/Surgical History: Denies Medical/Surgical History HEENT History: Reports: Other (See Below) Other HEENT History: glasses Cardiovascular History: Reports: Hypertension Other Respiratory History: smoker Gastrointestinal History: Reports: Cirrhosis, Other (See Below) Other Gastrointestinal History: not sure if actually cirrhosis but has "some liver problems" Musculoskeletal History: Reports: Back Pain, Chronic, Other (See Below) Other Musculoskeletal History: hx bulging discs Other Neuro History: L5 left foot numbness Psychiatric History: Reports: Addiction, Other (See Below) Other Psychiatric History: Drinks 7 vodkas daily, forgetfullness. Does not remember instructions and carry them out. Was told the clinic was not open on saturday and minutes later found him at the clinic door trying to make an appointment Dermatologic History: Reports: Other (See Below) Other Dermatologic History: Scab over lower back, area red. - Infectious Disease History Infectious Disease History: Reports: Chicken Pox, Measles Other Infectious Disease History: doesn't know - Past Surgical History Respiratory Surgical History: Reports: None Social & Family History - Family History Family Medical History: Noncontributory - Tobacco Use Smoking Status *Q: Current Every Day Smoker Years of Tobacco use: 40 Packs/Tins Daily: 1.5 Used Tobacco, but Quit: No Second Hand Smoke Exposure: No - Caffeine Use Caffeine Use: Reports: Coffee - Alcohol Use Days Per Week of Alcohol Use: 7 Number of Drinks Per Day: 20 Total Drinks Per Week: 140 - Recreational Drug Use Recreational Drug Use: No Drug Use in Last 12 Months: No Recreational Drug Type: Reports: Marijuana/Hashish ED ROS GENERAL - Review of Systems Review Of Systems: See Below Constitutional: Reports: No Symptoms HEENT: Reports: No Symptoms Respiratory: Reports: No Symptoms Cardiovascular: Reports: No Symptoms Endocrine: Reports: No Symptoms GI/Abdominal: Reports: No Symptoms : Reports: No Symptoms Musculoskeletal: Reports: Back Pain Skin: Reports: No Symptoms Neurological: Reports: Numbness Psychiatric: Reports: No Symptoms Hematologic/Lymphatic: Reports: No Symptoms ED EXAM,LOWER BACK PAIN/INJURY - Physical Exam Exam: See Below Exam Limited By: No Limitations General Appearance: Alert, WD/WN, No Apparent Distress Eye Exam: Bilateral Eye: EOMI, Normal Fundi, Normal Inspection, PERRL Ears: Normal External Exam, Normal Canal, Hearing Grossly Normal, Normal TMs Nose: Normal Inspection, Normal Mucosa, No Blood Throat/Mouth: Normal Inspection, Normal Lips, Normal Teeth, Normal Gums, Normal Oropharynx, Normal Voice, No Airway Compromise Head: Atraumatic, Normocephalic Neck: Normal Inspection, Supple, Non-Tender, Full Range of Motion Respiratory/Chest: No Respiratory Distress, Lungs Clear, Normal Breath Sounds, No Accessory Muscle Use, Chest Non-Tender Cardiovascular: Normal Peripheral Pulses, Regular Rate, Rhythm, No Edema, No Gallop, No JVD, No Murmur, No Rub GI/Abdominal: Normal Bowel Sounds, Soft, Non-Tender, No Organomegaly, No Distention, No Abnormal Bruit, No Mass Back Exam: Decreased Range of Motion, Muscle Spasm, Paraspinal Tenderness Extremities: Normal Inspection, Normal Range of Motion, Non-Tender, No Pedal Edema, Normal Capillary Refill Neurological: Alert, Normal Mood/Affect, Normal Dorsiflexion, CN II-XII Intact, Normal Plantar Flexion, Normal Gait, Normal Reflexes, No Motor/Sensory Deficits , Oriented x 3 DTR - Lower Extremities: 2+: Knee (R), Knee (L), Ankle (R), Ankle (L) Psychiatric: Normal Affect, Normal Mood Skin Exam: Warm, Dry, Intact, Normal Color, No Rash Lymphatic: No Adenopathy Course - Vital Signs Text/Narrative:: Uneventful ED course. He will follow up with Dr. Mejia early next week to get set up with a back surgeon. Prednisone 40 mg po q day for 3 days. Ibuprofen 600 mg po qid, rest, ice and recheck prn. Last Recorded V/S: Last Vital Signs Temp 37.3 C 08/17/17 13:16 Pulse 103 H 08/17/17 13:16 Resp 20 08/17/17 13:16 BP 128/124 H 08/17/17 13:16 Pulse Ox 97 08/17/17 13:16 - Orders/Labs/Meds Orders: Active Orders 24 hr Category Date Time Status Lumbar Spine wo Cont [CT] Stat Exams 08/17/17 13:06 Taken Labs: Laboratory Tests 08/17/17 08/17/17 Range/Units 13:20 13:20 WBC 9.3 (4.0-11.0) K/uL RBC 4.09 L (4.50-6.50) M/uL Hgb 13.8 (13.0-18.0) g/dL Hct 40.0 (40.0-54.0) % MCV 98 H (76-96) fL MCH 33.7 H (27.0-32.0) pg MCHC 34.5 (31.0-35.0) g/dL RDW 16.5 H (11.0-16.0) % Plt Count 119 L D (150-400) K/uL MPV 9.8 (6.0-10.0) fL Neut % (Auto) 66.8 (45.0-70.0) % Lymph % (Auto) 28.4 (20.0-40.0) % [place] % (Auto) 4.4 (3.0-10.0) % Eos % (Auto) 0.2 L (1.0-5.0) % Baso % (Auto) 0.2 (0.0-0.5) % Neut # (Auto) 6.20 (2.00-7.50) K/uL Lymph # (Auto) 2.64 (1.50-4.00) K/uL [place] # (Auto) 0.41 (0.20-0.80) K/uL Eos # (Auto) 0.02 L (0.04-0.40) K/uL Baso # (Auto) 0.02 (0.02-0.10) K/uL Sodium 137 (136-145) mmol/L Potassium 3.5 (3.5-5.1) mmol/L Chloride 99 (98-107) mmol/L Carbon Dioxide 22.8 D (21.0-32.0) mmol/L Anion Gap 18.7 H (5.0-15.0) mmol/L BUN 10 D (8-26) mg/dL Creatinine 0.62 L (0.70-1.30) mg/dL Est Cr Clr Drug Dosing TNP Estimated GFR (MDRD) > 60 (>60) MLS/MIN BUN/Creatinine Ratio 16.1 (6-25) Glucose 117 H (74-100) mg/dL Calcium 7.7 L (8.5-10.1) mg/dL Total Bilirubin 0.7 (0.0-1.0) mg/dL AST 82 H (15-37) U/L ALT 31 (12-78) U/L Alkaline Phosphatase 173 H (46-116) U/L Total Protein 7.5 (6.4-8.2) g/dL Albumin 3.4 (3.4-5.0) g/dL Globulin 4.1 (2.2-4.2) g/dL Albumin/Globulin Ratio 0.8 (0.8-2.0) Ethyl Alcohol 42.0 H (0.0-0.0) mg/dL Departure - Departure Time of Disposition: 18:42 Disposition: Home, Self-Care 01 Condition: Good Clinical Impression: Lumbago syndrome - Discharge Information Instructions: Ibuprofen tablets and capsules, Prednisone tablets Referrals: PCP,None [Primary Care Provider] - Forms: ED Department Discharge Care Plan Goals: Return to primary health care provider to get set up with Doctor Lauren to evaluate back. Take 600 mg Ibuprofen every 6 hours as needed for pain. Take 3 prednisone daily (30mg) for 5 days as directed by Dr. Ospina. - My Orders Last 24 Hours: My Active Orders 08/17/17 13:06 Lumbar Spine wo Cont [CT] Stat - Assessment/Plan Last 24 Hours: My Active Orders 08/17/17 13:06 Lumbar Spine wo Cont [CT] Stat
--- NOTE | 2017-08-19 09:12 | CT ---
DATE OF SERVICE: 08/17/17 CLINICAL DATA: Low back pain LUMBAR SPINE CT: Multislice axial acquisition was performed. Axial images and sagittal and coronal reformations are reviewed. The vertebral bodies are of average height and in good alignment. No acute fracture or dislocation. There is a Schmorl's node within the inferior endplate of the L3 vertebra. No other lytic or blastic bone lesions. There is mild narrowing of the L2-3 disc space. There is annular bulging of the L2-3 disc. It does produce ventral effacement of the dural sac. There is facet joint and ligamentum flavum hypertrophy at this level. There is mild central and mild neural foramen stenosis bilaterally. There is narrowing of the L3-4 disc space. There is annular bulging of the L3- 4 disc. There is facet joint and ligamentum flavum hypertrophy at this level. There is mild central and mild neural foramen stenosis bilaterally. There is annular bulging of the L4-5 disc with a small broad-based disc protrusion posterolaterally on the left. There is facet joint and ligamentum flavum hypertrophy at this level. There is mild central and mild neural foramen stenosis bilaterally. There is mild annular bulging of the L5-S1 disc. No other significant findings. [id number] [facility]
== END 2017-08-17 15:15 | disposition home or self-care (01) ==
LOC: LB.ED 12:56
DX: M54.5 Low back pain (principal); I10 Essential (primary) hypertension; F17.210 Nicotine dependence, cigarettes, uncomplicated
CPT/HCPCS: 36415; 72131; 80053; 85025; 99284; A9270; G0480; 99283

== ENCOUNTER 2017-09-04 12:42 | Emergency (ER) | payer MEDICAID ==
--- NOTE | 2017-09-04 13:02 | EDM.PDOC ---
ED HPI GENERAL MEDICAL PROBLEM - General Chief Complaint: Head Injury Stated Complaint: POSSIBLE SEIZURE Time Seen by Provider: 09/04/17 12:58 Source of Information: Reports: Patient, RN History Limitations: Reports: Other (confused) - History of Present Illness INITIAL COMMENTS - FREE TEXT/NARRATIVE: 52 yr male presents with ambulance transfer from [facility] in [facility], reported that pt fell and had seizure like activity, person at [facility] stated he was breathing and ambulance was called for him. States he can't remember falling. He does have a laceration above the left eye. Hypertensive and tachcardic. States no pain and no shortness of breath. Pt alert and looking around, knows he is in hospital and knows who he is. States he hasn't had any alcohol today, but did have 1/4 of a quart yesterday. Metoprolol 5 mg IV slow IV given and heart rate decreased to 95. States he didn't take his BP medication today, but is confused about this. Doesn't remember if he ate today. SpO2 =89% on room air and oxygen started per [place]. N/S IV at 125cc/hr started to left hand. Labs drawn for CBC and CMP and U/A for drug screen. - Related Data Allergies Allergy/AdvReac Type Severity Reaction Status Date / Time No Known Allergies Allergy Verified 09/04/17 12:59 Home Meds: Home Meds Captopril [Capoten] 25 mg PO TID 08/22/17 [History] Prednisone [IJP: Prednisone] 30 mg PO DAILY 08/22/17 [History] Past Medical History - Past Health History Medical/Surgical History: Denies Medical/Surgical History HEENT History: Reports: Other (See Below) Other HEENT History: glasses Cardiovascular History: Reports: Hypertension Other Respiratory History: smoker Gastrointestinal History: Reports: Cirrhosis, Other (See Below) Other Gastrointestinal History: not sure if actually cirrhosis but has "some liver problems" Musculoskeletal History: Reports: Back Pain, Chronic, Other (See Below) Other Musculoskeletal History: hx bulging discs Other Neuro History: L5 left foot numbness Psychiatric History: Reports: Addiction, Other (See Below) Other Psychiatric History: Drinks 7 vodkas daily, forgetfullness. Does not remember instructions and carry them out. Was told the clinic was not open on saturday and minutes later found him at the clinic door trying to make an appointment Dermatologic History: Reports: Other (See Below) Other Dermatologic History: Scab over lower back, area red. - Infectious Disease History Infectious Disease History: Reports: Chicken Pox, Measles Other Infectious Disease History: doesn't know - Past Surgical History Respiratory Surgical History: Reports: None Social & Family History - Family History Family Medical History: Noncontributory - Tobacco Use Smoking Status *Q: Heavy Tobacco Smoker Years of Tobacco use: 40 Packs/Tins Daily: 1 Used Tobacco, but Quit: No Second Hand Smoke Exposure: No - Caffeine Use Caffeine Use: Reports: None - Alcohol Use Days Per Week of Alcohol Use: 7 Number of Drinks Per Day: 5 Total Drinks Per Week: 35 - Recreational Drug Use Recreational Drug Use: No Drug Use in Last 12 Months: No Recreational Drug Type: Reports: Marijuana/Hashish ED ROS GENERAL - Review of Systems Review Of Systems: See Below Constitutional: Reports: No Symptoms HEENT: Reports: Glasses. Denies: Vision Change Respiratory: Reports: No Symptoms Cardiovascular: Reports: No Symptoms GI/Abdominal: Reports: No Symptoms Musculoskeletal: Reports: No Symptoms Neurological: Reports: Confusion - Physical Exam Exam: See Below Exam Limited By: Altered Mental Status General Appearance: Alert, No Apparent Distress Ears: Hearing Grossly Normal Nose: Normal Inspection Throat/Mouth: Normal Voice, No Airway Compromise Head Exam: Scalp Abrasions, Scalp Hematoma (posterior head), Facial Abrasions Neck: Supple, Non-Tender, Full Range of Motion Respiratory/Chest: No Respiratory Distress, Lungs Clear, Normal Breath Sounds Cardiovascular: Regular Rate, Rhythm GI/Abdominal: Soft, Non-Tender (Male) Exam: Other (voiding without difficulty with urinal about 300 cc increments) Neuro Exam (Abbreviated): Alert, Confused, Memory Loss Recent Events Back Exam: Normal Inspection Extremities: Normal Range of Motion, Non-Tender, Normal Capillary Refill Psychiatric: Normal Affect, Normal Mood Skin Exam: Warm, Dry, Ecchymosis (noted to ankles and shins) Course - Vital Signs Last Recorded V/S: Last Vital Signs Temp Pulse 94 09/04/17 13:22 Resp BP 160/110 H 09/04/17 14:52 Pulse Ox - Orders/Labs/Meds Labs: Laboratory Tests 09/04/17 09/04/17 09/04/17 Range/Units 12:10 12:10 13:27 WBC 9.3 (4.0-11.0) K/uL RBC 3.77 L (4.50-6.50) M/uL Hgb 13.4 (13.0-18.0) g/dL Hct 39.0 L (40.0-54.0) % MCV 103 H (76-96) fL MCH 35.5 H (27.0-32.0) pg MCHC 34.4 (31.0-35.0) g/dL RDW 17.0 H (11.0-16.0) % Plt Count 47 L* D (150-400) K/uL MPV 11.3 H (6.0-10.0) fL Neut % (Auto) 79.2 H (45.0-70.0) % Lymph % (Auto) 14.4 L (20.0-40.0) % [place] % (Auto) 5.8 (3.0-10.0) % Eos % (Auto) 0.2 L (1.0-5.0) % Baso % (Auto) 0.4 (0.0-0.5) % Neut # (Auto) 7.34 (2.00-7.50) K/uL Lymph # (Auto) 1.34 L (1.50-4.00) K/uL [place] # (Auto) 0.54 (0.20-0.80) K/uL Eos # (Auto) 0.02 L (0.04-0.40) K/uL Baso # (Auto) 0.04 (0.02-0.10) K/uL Sodium 132 L (136-145) mmol/L Potassium 3.3 L (3.5-5.1) mmol/L Chloride 93 L (98-107) mmol/L Carbon Dioxide 24.9 (21.0-32.0) mmol/L Anion Gap 17.4 H (5.0-15.0) mmol/L BUN 4 L D (8-26) mg/dL Creatinine 0.92 D (0.70-1.30) mg/dL Est Cr Clr Drug Dosing TNP Estimated GFR (MDRD) > 60 (>60) MLS/MIN BUN/Creatinine Ratio 4.3 L (6-25) Glucose 146 H (74-100) mg/dL Calcium 7.1 L (8.5-10.1) mg/dL Total Bilirubin 2.8 H D (0.0-1.0) mg/dL AST 103 H (15-37) U/L ALT 24 (12-78) U/L Alkaline Phosphatase 197 H (46-116) U/L Total Protein 7.0 (6.4-8.2) g/dL Albumin 3.2 L (3.4-5.0) g/dL Globulin 3.8 (2.2-4.2) g/dL Albumin/Globulin Ratio 0.8 (0.8-2.0) Urine Opiates Screen Negative (NEGATIVE) Ur Oxycodone Screen Negative (NEGATIVE) Urine Methadone Screen Negative (NEGATIVE) U Acetaminophen Screen Negative (NEGATIVE) Ur Barbiturates Screen Negative (NEGATIVE) Ur Tricyclics Screen Negative (NEGATIVE) Ur Phencyclidine Scrn Negative (NEGATIVE) Ur Amphetamine Screen Negative (NEGATIVE) U Methamphetamines Scrn Negative (NEGATIVE) U Benzodiazepines Scrn Negative (NEGATIVE) U Cocaine Metab Screen Negative (NEGATIVE) U Marijuana (THC) Screen Negative (NEGATIVE) Meds: Medications Discontinued Medications Generic Name Dose Route Start Last Admin Trade Name Freq PRN Reason Stop Dose Admin Clonidine HCl 0.1 mg 09/04/17 14:47 09/04/17 14:52 Catapres PO 09/04/17 14:48 0.1 mg ONETIME ONE Administration Clonidine HCl Confirm 09/04/17 14:52 Catapres Administered 09/04/17 14:53 Dose 0.1 mg .ROUTE .STK-MED ONE Sodium Chloride 1,000 mls @ 125 mls/hr 09/04/17 13:00 09/04/17 13:08 Normal Saline IV 125 mls/hr ASDIRECTED QUINTIN Administration Lorazepam 0.5 mg 09/04/17 13:16 09/04/17 13:19 Ativan PO 09/04/17 13:17 0.5 mg ONETIME ONE Administration Lorazepam Confirm 09/04/17 13:22 Ativan Administered 09/04/17 13:23 Dose 0.5 mg .ROUTE .STK-MED ONE Metoprolol Tartrate 5 mg 09/04/17 12:58 09/04/17 13:09 Lopressor IVPUSH 09/04/17 12:59 5 mg ONETIME ONE Administration Metoprolol Tartrate 25 mg 09/04/17 13:16 09/04/17 13:22 Lopressor PO 09/04/17 13:17 25 mg ONETIME ONE Administration Metoprolol Tartrate Confirm 09/04/17 13:25 Lopressor Administered 09/04/17 13:26 Dose 25 mg .ROUTE .STK-MED ONE Metoprolol Tartrate Confirm 09/04/17 13:45 Lopressor Administered 09/04/17 13:46 Dose 5 mg .ROUTE .STK-MED ONE - Re-Assessments/Exams Free Text/Narrative Re-Assessment/Exam: 09/04/17 14:48 BP elevated, 181/121. States no pain, but notice hematoma to back of head. Will give Clonidine 0.1 mg po now. Pulse 109. Pt using urinal. 09/04/17 17:00 Monitored pt and IV fluids at 125cc/hr. Pt alert and wanting to go home. Reviewed lab results with pt with low Platelets. Recommend hospital admit and pt becomes anxious and took off BP cuff, and states he is going outside for a cigarette. Pt insists on going home and it is time to go home. He is unsteady on his feet. Poor memory and poor judgement for this pt. Recommend F/U in clinic in 1-2 days. Referral to be set-up for neurology and hematology for pt. BP now is 148/92. Pt sitting in wheelchair. Pt gave approval to call his family member, Dalton to come and get him. Pt had Ativan here and recommend getting a ride home tonight. Take medication at home, have supper today, pt has not ate all day and refuses any food at hospital. Appointment made for tomorrow at 3pm for follow-up. Pt voiding well, sitting in wheelchair and states he is ready to leave and go home. Family member will be here in about 15 minutes. Pt ready to go outside for cigarette. Departure - Departure Time of Disposition: 15:05 Disposition: Home, Self-Care 01 Condition: Fair Clinical Impression: Head injury without fracture of skull, HTN (hypertension), Alcohol abuse, Alcohol induced liver disorder, Electrolyte imbalance, Temporary low platelet count - Discharge Information Instructions: Hypertension, [id number], Seizure, Adult, [id number] Referrals: PCP,None [Primary Care Provider] - Forms: ED Department Discharge Care Plan Goals: Pt to return to clinic tomorrow for followup care.
[2017-09-04] MEDS: Sodium Chloride 0.9% 1,000 ML IV SCH (13:08)
[2017-09-04] MEDS: Metoprolol Tartrate 5 MG/5 ML SDV IVPUSH ONE (13:09)
[2017-09-04] MEDS: LORazepam 0.5 MG Tab PO ONE (13:19)
[2017-09-04] MEDS: Metoprolol Tartrate 25 MG Tab PO ONE (13:22)
[2017-09-04] MEDS ORDERED: LORazepam 0.5 MG Tab ONE (13:22)
[2017-09-04] MEDS ORDERED: Metoprolol Tartrate 25 MG Tab ONE (13:25)
[2017-09-04] MEDS ORDERED: Metoprolol Tartrate 5 MG/5 ML SDV ONE (13:45)
[2017-09-04] MEDS: cloNIDine 0.1 MG Tab PO ONE (14:52)
[2017-09-04] MEDS ORDERED: cloNIDine 0.1 MG Tab ONE (14:52)
[2017-09-04 14:53] VITALS: BP 160/110
--- NOTE | 2017-09-05 11:14 | CT ---
DATE OF SERVICE: 09/04/17 CLINICAL DATA: fall UNENHANCED BRAIN CT: Multislice acquisition through the brain without IV contrast was performed. Comparison is made to a prior exam dated 04/12/17. There is mild diffuse cerebral atrophy. There are periventricular lucencies bilaterally consistent with small vessel ischemic change. No masses or mass effect. No intracranial hemorrhage. No evidence of acute or subacute infarct. There is marked soft tissue swelling of the scalp in the posterior parietal and occipital regions centrally and on the left with hyperdensity consistent with a cephalohematoma. I do not see an underlying fracture. IMPRESSION: No acute intracranial abnormalities. [id number] [facility]
== END 2017-09-04 17:10 | disposition home or self-care (01) ==
LOC: LB.ED 12:42
DX: S90.02XA Contusion of left ankle, initial encounter (principal); S90.01XA Contusion of right ankle, initial encounter; S80.12XA Contusion of left lower leg, initial encounter; S80.11XA Contusion of right lower leg, initial encounter; S09.90XA Unspecified injury of head, initial encounter; S00.01XA Abrasion of scalp, initial encounter; S00.81XA Abrasion of other part of head, initial encounter; I10 Essential (primary) hypertension; K70.9 Alcoholic liver disease, unspecified; F10.10 Alcohol abuse, uncomplicated; E87.8 Other disorders of electrolyte and fluid balance, not elsewhere classified; D69.6 Thrombocytopenia, unspecified; F17.210 Nicotine dependence, cigarettes, uncomplicated; Z79.899 Other long term (current) drug therapy; W19.XXXA Unspecified fall, initial encounter
CPT/HCPCS: 36415; 70450; 80053; 80307; 85025; 96361; 96374; 99284-25; A0425; A0429; A9270-GY; J3490; J7040

== ENCOUNTER 2017-11-24 15:38 | Emergency (ER) | payer MEDICAID ==
[2017-11-24] MEDS ORDERED: [UNRECOGNIZED DRUG - OTHER] IV ONE ×4 (16:45)
[2017-11-24] MEDS ORDERED: THIAMINE IV ONE ×4 (16:45)
[2017-11-24] MEDS ORDERED: MVI IV ONE ×4 (16:45)
[2017-11-24] MEDS ORDERED: VITAMIN K IV ONE ×4 (16:45)
[2017-11-24] MEDS ORDERED: FOLIC ACID IV ONE ×4 (16:45)
[2017-11-24] MEDS ORDERED: LORazepam 2 MG/ML SDV ONE (19:22)
--- NOTE | 2017-11-25 08:12 | CT ---
DATE OF SERVICE: 11/24/17 CLINICAL DATA: SEIZURE UNENHANCED BRAIN CT: Multislice acquisition through the brain without IV contrast was performed. Comparison is made to a prior exam dated 09/04/17. There is diffuse cerebral atrophy. There are periventricular lucencies bilaterally consistent with small vessel ischemic change. No masses or mass effect. No intracranial hemorrhage. No evidence of acute or subacute infarct. No significant changes from the prior exam. IMPRESSION: No acute intracranial abnormalities. [id number] [facility]
== END 2017-11-24 19:43 ==
LOC: LB.ED 15:38
DX: F10.230 Alcohol dependence with withdrawal, uncomplicated (principal); G40.89 Other seizures; I10 Essential (primary) hypertension; F17.200 Nicotine dependence, unspecified, uncomplicated
CPT/HCPCS: 36415; 70450; 80053; 80307; 81001; 82962; 83605; 85025; 85610; 87040; 93005; 99285; A0425; A0429; G0480